=== PATIENT | male | born 1960 | race Caucasian/White ===

== ENCOUNTER 2017-04-30 19:10 | Emergency (ER) | payer OTHER ==
[2017-04-30 19:38] VITALS: TEMP 98.6; O2SAT 92
--- NOTE | 2017-04-30 19:52 | CPEKG ---
Heart Rate: 75 RR Interval: 800 P-R Interval: 148 QRSD Interval: 110 QT Interval: 404 QTC Interval: 452 P [place]: 21 QRS [place]: 65 T Wave [place]: -2 EKG Severity - ABNORMAL ECG - EKG Impression: SINUS RHYTHM EKG Impression: NONSPECIFIC INTRAVENTRICULAR CONDUCTION DELAY EKG Impression: INFERIOR INFARCT, AGE INDETERMINATE Electronically Signed By: Abdifatah Cash 30-Apr-2017 20:50:16
[2017-04-30 20:05] LABS: PLATELET COUNT 193 10^3/uL (150-400)
--- NOTE | 2017-04-30 20:07 | EDPHY ---
H & P Stated Complaint: high BP Time Seen by Provider: 04/30/17 19:26 HPI/ROS: Chief Complaint: High blood pressure HPI: 57-year-old male with no significant medical history presenting with general malaise and high blood pressure. Patient states that he was seen at an urgent care about a week ago for upper respiratory symptoms. At that time is noted to have an elevated blood pressure about 1 50s. He followed up with primary care physician on Monday for recheck. At that time his blood pressure was 140 systolic. She instructed him to check his blood pressure at home she felt unwell. Patient states that he drank several beers last night. This morning he woke up not feeling hung over but just with some general malaise. This afternoon he checked his blood pressure and it was 170 systolic. He became concerned about this and recheck did was up to 190. Does not have a history of hypertension in the past. Does not have any chest pain. No shortness of breath. No fevers or chills. No cough. No nausea or vomiting. No headaches. ROS: 10 point Review of Systems is negative except as noted in the HPI. PMH: Denies Social History: No smoking, occasional alcohol, no recreational drug use Family History: Hypertension Physical Exam: Gen: Awake, Alert, No Distress HEENT: Nose: no rhinorrhea Eyes: PERRLA, EOMI Mouth: Moist mucosa Neck: Supple, no JVD Chest: nontender, lungs clear to auscultation Heart: S1, S2 normal, no murmur Abd: Soft, non-tender, no guarding Back: no CVA tenderness, no midline tenderness Ext: no edema, non-tender Skin: no rash Neuro: CN II-XII intact, Sensation grossly intact, Strength 5/5 in bilateral upper and lower extremities - Personal History Current Tetanus/Diphtheria Vaccine: Unsure Current Tetanus Diphtheria and Acellular Pertussis (TDAP): Unsure - Medical/Surgical History Hx Asthma: No Hx Chronic Respiratory Disease: No Hx Diabetes: No Hx Cardiac Disease: No Hx Renal Disease: No Hx Cirrhosis: No Hx Alcoholism: No Hx HIV/AIDS: No Hx Splenectomy or Spleen Trauma: No Other PMH: nil stated. - Social History Smoking Status: Never smoked Constitutional: Initial Vital Signs Temperature (C) 36.7 C 04/30/17 19:16 Heart Rate 85 04/30/17 19:16 Respiratory Rate 16 04/30/17 19:16 Blood Pressure 184/118 H 04/30/17 19:16 O2 Sat (%) 95 04/30/17 19:16 O2 Delivery Mode Room Air Allergies/Adverse Reactions: No Known Allergies Allergy (Unverified 01/04/16 10:14) Home Medications: Medication Instructions Recorded NK [No Known Home Meds] 04/09/15 Medical Decision Making - Diagnostics EKG Interpretation: ECG time 7:50 p.m., sinus rhythm with a rate of 75. There are Q-waves in leads 3 in AVF. There is a nonspecific intraventricular conduction delay. These are unchanged from an ECG on 01/04/2016. ED Course/Re-evaluation: 57-year-old male with hypertension. No acute changes on his ECG. Normal kidney function. Blood pressures improved after some clonidine here. No evidence of acute end-organ damage. Will discharge with follow-up with primary care physician for further evaluation. - Data Points Laboratory Results: Laboratory Results 04/30/17 19:53 04/30/17 04/30/17 19:53 19:53 WBC 6.91 10^3/uL 10^3/uL (3.80-9.50) RBC 4.79 10^6/uL 10^6/uL (4.40-6.38) Hgb 16.2 g/dL g/dL (13.7-17.5) Hct 43.6 % % (40.0-51.0) MCV 91.0 fL fL (81.5-99.8) MCH 33.8 pg pg (27.9-34.1) MCHC 37.2 g/dL H g/dL (32.4-36.7) RDW 11.9 % % (11.5-15.2) Plt Count 193 10^3/uL 10^3/uL (150-400) MPV 9.6 fL fL (8.7-11.7) Neut % (Auto) 44.5 % % (39.3-74.2) Lymph % (Auto) 44.4 % % (15.0-45.0) Simpson % (Auto) 8.2 % % (4.5-13.0) Eos % (Auto) 2.0 % % (0.6-7.6) Baso % (Auto) 0.6 % % (0.3-1.7) Nucleat RBC Rel Count 0.0 % % (0.0-0.2) Absolute Neuts (auto) 3.07 10^3/uL 10^3/uL (1.70-6.50) Absolute Lymphs (auto) 3.07 10^3/uL H 10^3/uL (1.00-3.00) Absolute Monos (auto) 0.57 10^3/uL 10^3/uL (0.30-0.80) Absolute Eos (auto) 0.14 10^3/uL 10^3/uL (0.03-0.40) Absolute Basos (auto) 0.04 10^3/uL 10^3/uL (0.02-0.10) Absolute Nucleated RBC 0.00 10^3/uL 10^3/uL (0-0.01) Immature Gran % 0.3 % % (0.0-1.1) Immature Gran # 0.02 10^3/uL 10^3/uL (0.00-0.10) Sodium Pending Potassium Pending Chloride Pending Carbon Dioxide Pending Anion Gap Pending BUN Pending Creatinine Pending Estimated GFR Pending Glucose Pending Calcium Pending Medications Given: Discontinued Medications Clonidine (Catapres) 0.1 mg PO EDNOW ONE Stop: 04/30/17 19:44 Last Admin: 04/30/17 19:53 Dose: 0.1 mg Departure - Departure Disposition: Home, Routine, Self-Care Clinical Impression: Hypertension Condition: Good Instructions: Hypertension (ED) Additional Instructions: Follow up with primary care physician in 3-4 days for blood pressure recheck. Return to the emergency department for chest pain, shortness of breath, nausea, vomiting, or any other concerns. Referrals: Radha Velarde PA [Primary Care Provider] - As per Instructions
[2017-04-30 21:03] VITALS: BP 161/107; PULSE 69; RESP 18
== END 2017-04-30 21:15 | disposition home or self-care (01) ==
DX: I10 Essential (primary) hypertension (principal)

== ENCOUNTER 2018-03-03 18:28 | Emergency (ER) | payer OTHER ==
[2018-03-03 19:11] LABS: PLATELET COUNT 205 10^3/uL (150-400)
--- NOTE | 2018-03-03 19:31 | EDPHY ---
H & P Stated Complaint: Episode of L chest pain earlier today; BP elevated Time Seen by Provider: 03/03/18 18:42 HPI/ROS: CHIEF COMPLAINT: Chest pain HISTORY OF PRESENT ILLNESS: This is a 58-year-old male with a history of hypertension who presents after experiencing chest pain 2 and 1/2 hr ago. This occurred after he showered, while he was walking. Pain was crampy in nature and radiated into his left shoulder. He took 2 aspirin and rested for an hour. While he was resting the pain resolved but he had some arm numbness and lightheadedness, which also spontaneously resolved. He checked his blood pressure during these episodes and found to be 163/93 followed by a blood pressure of 175/108. He took an extra lisinopril 10 mg. REVIEW OF SYSTEMS: A ten system review of systems was performed and is negative with the exception of the items mentioned in the HPI. Past medical history: Hypertension Past surgical history: Negative Family history: No family history of coronary artery disease. His mother is alive at 96 years of age. 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 No tobacco use. General Appearance: Alert. Vital signs reviewed. Initial blood pressure 155/ 109, repeat blood pressure 146/90. Eyes: Pupils equal and round, no conjunctival injection, no discharge. Anicteric. ENT, Mouth: Mucous membranes are moist, no oropharyngeal erythema or edema. Neck: No lymphadenopathy, supple. Respiratory: Lungs are clear to auscultation; no wheezes, rales, or rhonchi. Cardiovascular: Regular rate and rhythm; no murmur, rub, or gallop. Gastrointestinal: Abdomen is soft and nontender, no masses or organomegaly, bowel sounds normal. Skin: Warm and dry, no rashes on exposed skin, normal color. Back: Nontender to palpation over the thoracolumbar spine. No CVAT. Extremities: No lower extremity edema, no calf tenderness or swelling. Neurological: Alert and oriented. Moving all four extremities easily and equally. Psychiatric: Normal affect. - Personal History Current Tetanus Diphtheria and Acellular Pertussis (TDAP): Yes - Medical/Surgical History Hx Asthma: No Hx Chronic Respiratory Disease: No Hx Diabetes: No Hx Cardiac Disease: No Hx Renal Disease: No Hx Cirrhosis: No Hx Alcoholism: No Hx HIV/AIDS: No Hx Splenectomy or Spleen Trauma: No Other PMH: HTN - Social History Smoking Status: Former smoker Constitutional: Initial Vital Signs Temperature (C) 36.3 C 03/03/18 18:29 Heart Rate 82 03/03/18 18:29 Respiratory Rate 18 03/03/18 18:29 Blood Pressure 155/109 H 18 18:29 O2 Sat (%) 97 03/03/18 18:29 O2 Delivery Mode Room Air Allergies/Adverse Reactions: No Known Allergies Allergy (Verified 03/03/18 18:29) Home Medications: Medication Instructions Recorded Lisinopril [Zestril 10 mg (*)] 10 mg PO 03/03/18 Medical Decision Making - Diagnostics EKG Interpretation: 12 lead EKG is interpreted in [place] by emergency department physician. ED Course/Re-evaluation: 58-year-old male with an episode of left-sided chest pain that radiated into his arm earlier this evening. In the emergency department he had a CBC, BMP, troponin, and chest x-ray all of which were within normal limits. He and I discussed the best next step and decided that, based upon the HEART score his score is 3), a repeat troponin and repeat EKG is warranted. These will be performed 3 hr from the 1st. He has been serially re-evaluated. He has not had any chest pain in the emergency department. Repeat EKGs evaluated by me and is unchanged compared to the 1 taken earlier this evening. Repeat troponin is normal. Patient is discharged home to follow up with his primary care physician. Differential Diagnosis: Chest pain including but not limited to myocardial ischemia, pulmonary embolus, chest wall pain, pleural inflammation and pulmonary infectious causes. - Data Points Laboratory Results: Laboratory Results 03/03/18 19:00 03/03/18 19:00 Point of Care Test Results: Chemistry 03/03/18 03/03/18 21:51 18:47 POC Troponin I 0.01 ng/mL ng/mL 0.01 ng/mL ng/mL (0.00-0.08) (0.00-0.08) Departure - Departure Disposition: Home, Routine, Self-Care Clinical Impression: Chest pain Condition: Good Instructions: Chest Pain (ED) Additional Instructions: Please let Dr. Rose know about your visit today. She should see you in the office next week and arrange further testing if needed. Let her know that your blood pressure was high. Urine ischial blood pressure reading in the emergency department was 155/109 with subsequent reading of 146/90. If you have a return of chest pain or any new or concerning symptoms you should be re-evaluated. Referrals: Tiffani Rose MD [Medical Doctor] - As per Instructions
[2018-03-03 22:18] VITALS: BP 127/87
--- NOTE | 2018-03-04 22:48 | CPEKG ---
Test Reason : OPEN Blood Pressure : / mmHG Vent. Rate : 073 BPM Atrial Rate : 074 BPM P-R Int : 172 ms QRS Dur : 104 ms QT Int : 392 ms P-R-T Axes : 033 068 013 degrees QTc Int : 432 ms Sinus rhythm Probable left atrial enlargement Confirmed by Citlalli Del Cid ([id number]) on 03/04/2018 10:48:32 PM Referred By: Confirmed By:Citlalli Del Cid
--- NOTE | 2018-03-05 09:29 | CPEKG ---
Test Reason : OPEN Blood Pressure : / mmHG Vent. Rate : 061 BPM Atrial Rate : 060 BPM P-R Int : 160 ms QRS Dur : 109 ms QT Int : 406 ms P-R-T Axes : 036 073 024 degrees QTc Int : 409 ms Sinus rhythm Inferior infarct, old Confirmed by Kenrick Avina ([id number]) on 03/05/2018 9:28:45 AM Referred By: Confirmed By:Kenrick Avina
== END 2018-03-03 22:18 | disposition home or self-care (01) ==
DX: R07.9 Chest pain, unspecified (principal); I10 Essential (primary) hypertension
CPT/HCPCS: 84484-PO

== ENCOUNTER 2018-09-15 14:06 | Emergency (ER) | payer OTHER | END 2018-09-15 15:48 | disposition home or self-care (01) ==